=== PATIENT | male | born 1975 | race Hispanic/Latino ===

== ENCOUNTER 2017-06-21 09:00 | Day surgery (SDC) | payer OTHER ==
[2017-06-21] MEDS ORDERED: Lactated Ringer's 1,000 ML IV ONE (09:11)
[2017-06-21 09:25] VITALS: TEMP 97
[2017-06-21] MEDS ORDERED: Propofol 10 mg/ml Inj (20 ML) ONE (10:23)
[2017-06-21 11:14] VITALS: BP 118/73; PULSE 88; RESP 19; O2SAT 99
== END 2017-06-21 11:29 | disposition home or self-care (01) ==
LOC: H.ENDO 09:00
PROVIDERS: ATTEND Internal Medicine Gastroenterology
DX: K30 Functional dyspepsia (principal); K21.9 Gastro-esophageal reflux disease without esophagitis; E66.9 Obesity, unspecified; K22.8 Other specified diseases of esophagus; K29.70 Gastritis, unspecified, without bleeding; K31.7 Polyp of stomach and duodenum; K31.9 Disease of stomach and duodenum, unspecified; K29.80 Duodenitis without bleeding
CPT/HCPCS: 43239; 88305; J2001; J2704; J7120